=== PATIENT | female | born 1935 | race Two or more races ===

== ENCOUNTER → 2024-11-30 | Emergency (ER) | payer OTHER ==
[~2024-11-30] VITALS: Ht 162.6 cm; Wt 72.6 kg
[~2024-11-30] MED LIST: AMLODIPINE-OLM1 EAC2 PO; GLIMEPIRIDE1 M1 PO; LEVOXYL50 MCG PO; LIPITOR40 M1 PO; VALSARTAN-HCTZ1 EAC4 PO
[2024-11-30 12:40] LABS: HEMATOCRIT 45.2 % (36.0-45.00); HEMOGLOBIN 15.3 g/dL (12.0-15.00); MEAN CELL VOLUME 84.2 fL (80.00-100.00); MEAN CORPUSCULAR HEMOGLOBIN 28.6 pg (27.00-32.0); PLATELET COUNT 224 K/uL (150-450); RED BLOOD COUNT 5.37 M/uL (4.00-6.00); RED CELL DISTRIBUTION WIDTH 14.4 % (11.5-14.5)
[2024-11-30 13:49] LABS: PH,URINE 6.5 (5.0-8.0); URINE APPEARANCE Clear; URINE BILIRRUBIN Negative (NEGATIVE); URINE BLOOD Negative; URINE COLOR Yellow; URINE GLUCOSE Negative (NEGATIVE); URINE KETONE Negative (NEGATIVE); URINE LEUKOCYTE Negative; URINE NITRATE Negative; URINE PROTEIN Negative (NEGATIVE)
[2024-11-30 13:54] LABS: URINE BACTERIA 244.7 uL (0.0-1933); URINE EPITHELIAL CELLS 36.3 uL (0.0-38.8); URINE WBC 3.1 uL (0.0-23.2)
[2024-11-30 14:14] LABS: CALCIUM 10.2 mg/dL (8.5-10.1); CREATININE SERUM 1.15 mg/dL (0.55-1.02); GFR 44.43; POTASSIUM 3.73 mEq/L (3.5-5.1)
== END | disposition home or self-care (01) ==
LOC: ER 10:22
PROVIDERS: General Practice
DX: L02.416 Cutaneous abscess of left lower limb (principal); L03.116 Cellulitis of left lower limb; I10 Essential (primary) hypertension; E11.9 Type 2 diabetes mellitus without complications